=== PATIENT | male | born 1945 | race Caucasian/White ===

== ENCOUNTER 2016-12-06 10:22 | Inpatient (IN) | payer BC ==
[2016-12-04 15:53] LABS: HEMATOCRIT 31.1 % (40.0-51.0); HEMOGLOBIN 10.3 g/dL (13.6-17.8); MANUAL DIFF YES %; MEAN CORPUS HGB CONC 33.1 g/dL (32.0-36.0); MEAN CORPUSCULAR HEMOGLOB 32.7 pg (26.0-34.0); MEAN CORPUSCULAR VOLUME 98.7 fL (80-100); MEAN PLATELET VOLUME 10.7 fL (9.2-13.0); PLATELET COUNT 166 10/3/uL (150-400); RBC DISTRIBUTION WIDTH 12.7 % (12.0-16.0); RED CELL COUNT 3.15 10/6/uL (4.7-6.1); WHITE BLOOD CELLS 7.8 10/3/uL (4.5-10.5)
[2016-12-04 16:00] LABS: INTERNATIONAL NORMAL RATI 1.1 UNITS (-); PARTIAL THROMBO TIME 29.2 SEC (22.5-37.2); PROTIME (NOT ORD) 13.6 SEC (12.0-14.5)
[2016-12-04 16:05] LABS: CALCIUM, SERUM 8.8 MG/DL (8.5-10.4); CHLORIDE, SERUM 110 MMOL/L (96-112); CO2 (CARBON DIOXIDE) 23 MMOL/L (24-34); CREATININE 2.33 MG/DL (0.70-1.30); GFR AFRICAN AMERICAN 31 ML/MIN (>=60); GFR NON AFRICAN AMERICAN 27 ML/MIN (>=60); GLUCOSE, SERUM 105 MG/DL (60-99); POTASSIUM, SERUM 4.8 MMOL/L (3.5-5.3); SODIUM, SERUM 140 MMOL/L (135-148)
[2016-12-04 16:06] LABS: BUN (BLOOD UREA NITROGEN) 21 MG/DL (6-23)
[2016-12-04 16:22] LABS: BASOPHILS 2 %; BASOPHILS ABSOLUTE (CALC) 0.16 10/3/uL (0.0-0.16); EOSINOPHILS 2 %; EOSINOPHILS ABSOLUTE (CALC) 0.16 10/3/uL (0.0-0.53); LYMPHOCYTES 22 %; LYMPHOCYTES ABSOLUTE (CALC) 1.72 10/3/uL (0.67-4.30); MONOCYTES 10 %; MONOCYTES ABSOLUTE (CALC) 0.78 10/3/uL (0.21-1.20); NEUTROPHILS ABSOLUTE (CALC) 4.99 10/3/uL (2.02-8.40); SEGMENTED NEUTROPHIL (0) 64 %; TOTAL NUCLEATED CELLS 100
[2016-12-04 16:23] LABS: PLATELET ESTIMATE ADQ (ADEQUATE); RBC MORPHOLOGY NORM (NORMAL)
[~2016-12-06] VITALS: Ht 182.9 cm; Wt 107.0 kg
--- NOTE | ~2016-12-06 | HP ---
History And Physical [id number] [place]. [address] NAME: SUJIT NEFF : 45 STATUS : PRE [facility] PAT#: [id number] AGE: 71 ADM/REG DATE : MR#: [id number] REPORT SERV DATE: 12/05/16 DICTATED BY: OSORIO OSWALD DATE: 12/05/16 REPORT STATUS : Draft TRANSCRIBED BY: MODL DATE: 12/05/16 DATE OF ADMISSION: 12/06/2016 CHIEF COMPLAINT: Urinary retention. HISTORY OF PRESENT ILLNESS: A 71-year-old male with long history of BPH with obstruction, developed urinary retention and urinary tract infection associated with some acute kidney injury. He has had a Oswald catheter in place and has been treated with appropriate antibiotics. He has been on Eliquis, which has been discontinued. The patient mentions his prostate in the past has measured 127 mL. He is scheduled for a cystoscopy, transurethral resection of the prostate, and will be admitted after that procedure. The patient has a history of urinary incontinence. Based on his history, I suspect that he has a poorly compliant bladder, which may lead to increased risk for postoperative urinary incontinence and urinary problems. He understands this, but wants to free himself of the Oswald catheter. PAST MEDICAL HISTORY: Hypertension and intermittent atrial fibrillation. PAST SURGICAL HISTORY: Indigo laser coagulation of his prostate in 2005 and esophageal ablation in 2007. MEDICATIONS: Eliquis on hold, finasteride, and tamsulosin. ALLERGIES: NONE. SOCIAL HISTORY: He is retired. He denies drug, alcohol, or tobacco abuse. REVIEW OF SYSTEMS: He has lost some of his sexual abilities over the last six to eight months and has diminished ejaculate as well. PHYSICAL EXAMINATION: GENERAL: Shows a well-developed and well-nourished white male, in no acute distress. He is awake and alert. VITAL SIGNS: He is afebrile. His vital signs are stable. ABDOMEN: Soft and nontender. There is a small umbilical hernia. : The penis has a catheter in place, some mild redness around it. Testes are descended, nontender. Kidneys are nontender. The prostate is large and smooth and no nodules. LUNGS: Clear. HEART: Has a regular rate and rhythm at the present time. IMPRESSION: 1. Urinary retention. 2. Massive benign prostatic hyperplasia .. 3. Acute kidney injury with bilateral hydro. History And Physical [address] [address] NAME: SUJIT NEFF : 45 STATUS : PRE [facility]#: [id number] AGE: 71 ADM/REG DATE : MR#: [id number] REPORT SERV DATE: 12/05/16 DICTATED BY: OSORIO OSWALD DATE: 12/05/16 REPORT STATUS : Draft TRANSCRIBED BY: MARCIE DATE: 12/05/16 RECOMMENDATIONS: Cystoscopy, bilateral retrograde pyelogram, and transurethral resection of the prostate. Potential complications of bleeding, infection, urinary incontinence, bladder neck obstruction, loss of ejaculate, erectile dysfunction, and injury to adjacent structures such as bladder, ureters, rectum, colon, intestine, nerves, as well as postoperative incontinence as well as failure to re-establish urination have all been explained to the patient. He manually and verbally consents to proceed. PF/MARCIE Osorio Oswald M.D. / [id number] CC: Tierney Guzman M.D.
--- NOTE | ~2016-12-06 | OP ---
Record Of Operation [facility] [address] [place]. [address] NAME: SUJIT OLIVA : 45 STATUS : ADM [facility] PAT#: [id number] AGE: 71 ADM/REG DATE : 12/06/16 MR#: [id number] REPORT SERV DATE: 12/06/16 DICTATED BY: OSORIO OSWALD DATE: 12/06/16 REPORT STATUS : Draft TRANSCRIBED BY: MODL DATE: 12/06/16 DATE OF PROCEDURE: 12/06/2016 PREOPERATIVE DIAGNOSIS: Benign prostatic hyperplasia with obstruction. OTHER DIAGNOSES: Urinary retention and acute kidney injury. PROCEDURES: Cystoscopy, transurethral resection of the prostate. ANESTHESIA: Spinal. ESTIMATED BLOOD LOSS: 50 mL. FLUID REPLACEMENT: 800 mL of crystalloid. DRAINS: A 24-German three-way Oswald catheter with 40 mL of sterile water inflated in the catheter balloon. INDICATION: Mr. Oliva is a 71-year-old male with urinary retention, bilateral hydronephrosis, and acute kidney injury. TECHNIQUE: The patient was identified, brought to the operating room, administered spinal anesthetic agent by the Anesthesia Service, and he was positioned in dorsal lithotomy position. The Oswald catheter was removed, and the entire lower abdomen, penis, groin, scrotum, and perineum were prepped and draped in the usual sterile fashion. I sounded the urethra to 30-German with Isabela sounds. I inserted a 22-German cystoscope with a 30- degree lens. The anterior and bulbus urethra was normal. The prostatic urethra was massively hypertrophied with lateral lobe and median lobe and anterior lobe, which extruded into the bladder. The bladder was entered and surveyed. I am unable to identify the ureteral orifice with either the 30 or 70-degree lens. The bladder is thick and trabeculated and the prostate is friable and bleeding to obscure vision. I removed the cystoscope. I repeat sounding the urethra to 30-German Isabela sounds and inserted a 28- German continuous flow resecting sheath and obturator. The obturator was removed. The Lookmash resectoscope with 30-degree lens was inserted. I began by resecting the median lobe starting inside the prostate and working back to the bladder neck on the floor of the prostate. I then worked the lateral lobes inside the bladder neck back to the bladder neck bilaterally. I then resected from the bladder neck back to the verumontanum starting at the floor of the prostate and then the lateral lobes. Finally, I resected rather large anterior lobe. The bladder was intermittently irrigated free of all debris and clots. Fastidious hemostasis was achieved. I removed the resecting sheath. I placed the 24-German three-way Oswald catheter into the bladder with a catheter guide. 30 mL of sterile water were inflated in the balloon. Manually irrigated clear, but it remains peeing, so I added another 10 mL to it and placed it on traction. I then did a digital rectal exam. The rectum was intact and I disimpacted some hard stool balls. I then cleaned the patient, put him in the supine position, transferred him on to the [facility], and returned to the recovery unit in stable and satisfactory condition. Record Of Operation [facility] [address] [facility] [place]. [address] NAME: SUJIT OLIVA : 45 STATUS : ADM [facility] PAT#: [id number] AGE: 71 ADM/REG DATE : 12/06/16 MR#: [id number] REPORT SERV DATE: 12/06/16 DICTATED BY: OSORIO OSWALD DATE: 12/06/16 REPORT STATUS : Draft TRANSCRIBED BY: MARCIE DATE: 12/06/16 PF/MRACIE Osorio Oswald M.D. / [id number] CC: Tierney Guzman M.D.
[~2016-12-06 10:22] MED LIST: ASA5GR PO; ASAB PO; AVODART PO; CIALIS10 MG PO; CIALIS5 MG PO; COQ10100 MG OR; COREG25 PO; ELIQUIS 5 MG TAB5 MG PO; FISH-EPA1000 MG PO; FLOMAX4 PO; HYZAAR 50/12.51 TAB PO; KRILLOIL; LIPITOR20 PO; MULTIPLE VIT PO; NEXIUM20 M1 PO; PRILO PO; PRILOSEC40 MG PO; PRIN20 PO; PROVIGIL2 PO; RED YEAST RICE PO; VITC500 PO; ZESTORETIC PO; ZOCOR20 PO
[2016-12-07 04:53] LABS: HEMOGLOBIN 8.4 g/dL (13.6-17.8)
[2016-12-07 04:55] LABS: HEMATOCRIT 24.6 % (40.0-51.0)
[2016-12-07 05:10] LABS: BUN (BLOOD UREA NITROGEN) 34 MG/DL (6-23); CALCIUM, SERUM 8.4 MG/DL (8.5-10.4); CHLORIDE, SERUM 105 MMOL/L (96-112); CO2 (CARBON DIOXIDE) 24 MMOL/L (24-34); GFR AFRICAN AMERICAN 29 ML/MIN (>=60); GFR NON AFRICAN AMERICAN 25 ML/MIN (>=60); GLUCOSE, SERUM 99 MG/DL (60-99); POTASSIUM, SERUM 4.3 MMOL/L (3.5-5.3); SODIUM, SERUM 138 MMOL/L (135-148)
[2016-12-08 07:44] LABS: HEMATOCRIT 24.5 % (40.0-51.0); HEMOGLOBIN 8.3 g/dL (13.6-17.8)
[2016-12-08 07:58] LABS: BUN (BLOOD UREA NITROGEN) 35 MG/DL (6-23); CALCIUM, SERUM 8.4 MG/DL (8.5-10.4); CHLORIDE, SERUM 107 MMOL/L (96-112); CO2 (CARBON DIOXIDE) 25 MMOL/L (24-34); CREATININE 2.83 MG/DL (0.70-1.30); GFR AFRICAN AMERICAN 25 ML/MIN (>=60); GFR NON AFRICAN AMERICAN 21 ML/MIN (>=60); GLUCOSE, SERUM 105 MG/DL (60-99); POTASSIUM, SERUM 4.1 MMOL/L (3.5-5.3); SODIUM, SERUM 139 MMOL/L (135-148)
[2016-12-08] MEDS ORDERED: PCET PO (13:08)
[2016-12-08] MEDS ORDERED: NUIRONCAP PO (13:08)
[2016-12-08] MEDS ORDERED: LEVAQUIN750 MG PO (13:09)
[2016-12-08 20:21] LABS: HEMOGLOBIN 9.2 g/dL (13.6-17.8)
[2016-12-08 20:27] LABS: HEMATOCRIT 27.5 % (40.0-51.0)
== END 2016-12-08 22:47 | disposition home or self-care (01) | DRG 713 ==
LOC: ENRESERVTM → ENRESERVDT → ENRESERV → SDC 10:22 → 4SO 13:49 → SDC/OF 13:49 → 4SO 15:21
PROVIDERS: Urology
PROC: 0VT08ZZ Resection of Prostate, Via Natural or Artificial Opening Endoscopic (ICD-10-PCS; principal; 2016-12-06 11:30)
PROC: 0TJB8ZZ Inspection of Bladder, Via Natural or Artificial Opening Endoscopic (ICD-10-PCS; 2016-12-06 11:30)
DX: N40.1 Benign prostatic hyperplasia with lower urinary tract symptoms (principal); N18.4 Chronic kidney disease, stage 4 (severe); N17.9 Acute kidney failure, unspecified; E78.00 Pure hypercholesterolemia, unspecified; I48.2 Chronic atrial fibrillation; Z79.01 Long term (current) use of anticoagulants; G47.33 Obstructive sleep apnea (adult) (pediatric); I12.9 Hypertensive chronic kidney disease with stage 1 through stage 4 chronic kidney disease, or unspecified chronic kidney disease
CPT/HCPCS: 36415; 80048; 85014; 85018; 85025; 85610; 85730; 86850; 86900; 86901; 86920; 88305; 93005; A9270-GY; J2250; J2405; J2550; J3010; P9016; Q9967